=== PATIENT | male | born 1985 | race Two or more races ===

== ENCOUNTER 2021-12-12 00:15 | Emergency (ER) | payer BC ==
[2021-12-12] MEDS ORDERED: Ketorolac 30 MG/ML SDV IVPUSH ONE (00:45)
[2021-12-12] MEDS ORDERED: Sodium Chloride 0.9% 1,000 ML IV ONE (00:45)
[2022-01-20 14:55] LABS: BLOOD UREA NITROGEN,BUN 12 mg/dL (7.0-18.0); CARBON DIOXIDE,CO2 27.7 mmol/L (21.0-32.0); CHLORIDE,CL 104 mmol/L (98-107); GLUCOSE RANDOM 157 mg/dL (74-106); POTASSIUM,K 3.4 mmol/L (3.5-5.1); SODIUM,NA 141 mmol/L (136-148)
[2022-01-20 14:56] LABS: ESTIMATED GFR 89 mL/min (>60)
== END 2021-12-12 03:00 | disposition home or self-care (01) ==
LOC: MW.ED 00:15
DX: N20.0 Calculus of kidney (principal)
CPT/HCPCS: 36415; 74176; 80053; 81001; 85025; 96374; 99283; J1885; J7030; 99284